=== PATIENT | female | born 1945 | race African-American/Black ===

== ENCOUNTER 2021-08-20 10:54 | Inpatient (IN) ==
[2021-08-20] MEDS ORDERED: cefTRIAXone 1,000 MG in SODIUM CHLORIDE 0.9% 100 ML IV STA (11:31)
[2021-08-20] MEDS ORDERED: AZITHROMYCIN INJ 500 MG in SODIUM CHLORIDE 0.9% 250 ML IV STA (11:31)
[2021-08-20 12:39] LABS: Basophils % 0.1 % (0.0-0.8); Eosinophils # 0.1 10*3/uL (0.0-0.87); Eosinophils % 0.8 % (0.00-10.9); Hemoglobin 12.3 GM/DL (12.0-16.0); Immature Granulocytes % 0.7 %; Immature Granulocytes Absolute 0.05 #; Lymphocytes # 1.4 10*3/uL (1.4-4.0); Lymphocytes % 19.5 % (21.3-54.2); Mean Corpuscular HGB Conc 31.5 GM/DL (32-36); Mean Corpuscular Volume 84.1 FL (87-102); Mean Platelet Volume 10.3 FL (9.6-12.0); Monocytes % 13.8 % (1.7-12.7); Neutrophils % 65.1 % (38.7-73.9); Platelet Count 283 T/CUMM (130-400); Red Blood Count 4.64 MC/CUMM (3.8-5.5); Red Cell Distribution Width 13.9 % (9.3-17.3); White Blood Count 7.2 T/CUMM (4-12)
[2021-08-20 13:01] LABS: Alanine Aminotransferase 40 U/L (13-56); Albumin 2.6 G/DL (3.4-5.0); Alkaline Phosphatase 73 U/L (45-117); Aspartate Amino Transferase 39 U/L (0-37); Blood Urea Nitrogen 21 MG/DL (7-18); Carbon Dioxide 22 MMOL/L (21-32); Estimated Glom Filtration Rate 55 ML/MIN; Glucose 190 MG/DL (74-106); Osmolality,Calculated 297.6 MOS/KG (273-304); Potassium 3.6 MMOL/L (3.5-5.1); Sodium 146 MMOL/L (136-145)
[2021-08-20 13:01] LABS: Anisocytosis 1+; Band Neutrophils 7 % (0-10); Eosinophils 2 % (0-10); Lymphocytes 18 % (20-55); Platelet Estimate Normal; Segmented Neutrophils 60 % (50-85); Total Cells Counted 100
[2021-08-20 13:14] LABS: Bilirubin,Urine Negative (Negative); Blood, Urine Negative (Negative); Glucose,Urine (UA) >=500 mg/dL (Negative); Ketones,Urine 20 mg/dL (Negative); Mucus,Urine Occasional /LPF (Occasional); Nitrite,Urine Negative (Negative); Protein,Urine Negative; RBC,Urine 1 /HPF (0-4); Urine Appearance CLEAR (Clear); Urine Color Yellow (Yellow); Urine Specific Gravity 1.015 (1.001-1.035); Urine Urobilinogen < 2.0 EU/DL (<2.0)
[2021-08-20] MEDS ORDERED: ONDANSETRON 4 MG/2 ML VIAL IV PRN (14:17)
[2021-08-20] MEDS ORDERED: GLUCAGON 1 MG VIAL IM PRN (14:17)
[2021-08-20] MEDS ORDERED: DEXTROSE 50% 25 GM/50 ML SYRINGE IV PRN (14:39)
[2021-08-20] MEDS: INSULIN LISPRO 100 UNIT/ML SUBCUT SCH ×2 (18:28→21:53)
[2021-08-20] MEDS: SODIUM CHLORIDE 0.45% 1,000 ML IV SCH (18:33)
[2021-08-20] MEDS: DEXAMETHASONE 4 MG/1 ML VIAL IV SCH (18:34)
[2021-08-21 05:17] LABS: Basophils % 0.2 % (0.0-0.8); Hematocrit 34.5 VOL% (35.7-47.0); Immature Granulocytes % 0.9 %; Immature Granulocytes Absolute 0.05 #; Lymphocytes # 1.1 10*3/uL (1.4-4.0); Lymphocytes % 18.5 % (21.3-54.2); Mean Corpuscular HGB Conc 31.9 GM/DL (32-36); Mean Corpuscular Volume 83.9 FL (87-102); Mean Platelet Volume 10.6 FL (9.6-12.0); Monocytes % 6.5 % (1.7-12.7); Neutrophils % 73.9 % (38.7-73.9); Platelet Count 238 T/CUMM (130-400); Red Blood Count 4.11 MC/CUMM (3.8-5.5); Red Cell Distribution Width 13.9 % (9.3-17.3); White Blood Count 5.8 T/CUMM (4-12)
[2021-08-21 05:44] LABS: Albumin 2.1 G/DL (3.4-5.0); Bilirubin,Total 0.6 MG/DL (0.20-1.00); Calcium 8.7 MG/DL (8.5-10.1); Osmolality,Calculated 287.5 MOS/KG (273-304); Potassium 3.7 MMOL/L (3.5-5.1); Total Protein 6.9 G/DL (6.4-8.2)
[2021-08-21 08:27] LABS: Ferritin 656.7 ng/mL (8-252)
[2021-08-21] MEDS: ASCORBIC ACID 500 MG TABLET PO SCH ×2 (09:14→21:54)
[2021-08-21] MEDS: CETIRIZINE 10 MG TABLET PO SCH (09:14)
[2021-08-21] MEDS: ZINC GLUCONATE 50 MG TABLET PO SCH (09:15)
[2021-08-21] MEDS: FAMOTIDINE 20 MG TABLET PO SCH ×2 (09:15→21:54)
[2021-08-21] MEDS: CHOLECALCIFEROL 1,000 UNIT TABLET PO SCH (09:15)
[2021-08-21] MEDS: DEXAMETHASONE 4 MG/1 ML VIAL IV SCH (09:15)
[2021-08-21] MEDS: INSULIN LISPRO 100 UNIT/ML SUBCUT SCH ×4 (09:16→21:55)
[2021-08-21] MEDS ORDERED: HEPARIN DRIP 25,000 UNITS/500 ML PREMIX IV SCH (13:00)
[2021-08-21] MEDS: ENOXAPARIN 80 MG/0.8 ML SYRINGE SUBCUT SCH ×2 (15:39→21:55)
[2021-08-21] MEDS: SODIUM CHLORIDE 0.45% 1,000 ML IV SCH (15:40)
[2021-08-22 01:40] LABS: Basophils % 0.1 % (0.0-0.8); Hematocrit 35.1 VOL% (35.7-47.0); Hemoglobin 11.5 GM/DL (12.0-16.0); Immature Granulocytes % 1.1 %; Immature Granulocytes Absolute 0.09 #; Lymphocytes % 24.1 % (21.3-54.2); Mean Corpuscular HGB Conc 32.8 GM/DL (32-36); Mean Corpuscular Volume 82.4 FL (87-102); Mean Platelet Volume 10.5 FL (9.6-12.0); Monocytes % 11.1 % (1.7-12.7); Neutrophils % 63.6 % (38.7-73.9); Platelet Count 256 T/CUMM (130-400); Red Blood Count 4.26 MC/CUMM (3.8-5.5); Red Cell Distribution Width 13.8 % (9.3-17.3); White Blood Count 8.1 T/CUMM (4-12)
[2021-08-22 01:57] LABS: Calcium 9.1 MG/DL (8.5-10.1); Osmolality,Calculated 282.8 MOS/KG (273-304); Potassium 3.9 MMOL/L (3.5-5.1)
[2021-08-22 02:26] LABS: Hypochromia 2+; Platelet Estimate Normal
[2021-08-22] MEDS: DEXAMETHASONE 4 MG/1 ML VIAL IV SCH (08:52)
[2021-08-22] MEDS: ZINC GLUCONATE 50 MG TABLET PO SCH (08:52)
[2021-08-22] MEDS: INSULIN LISPRO 100 UNIT/ML SUBCUT SCH ×2 (08:52→12:02)
[2021-08-22] MEDS: FAMOTIDINE 20 MG TABLET PO SCH (08:53)
[2021-08-22] MEDS: CHOLECALCIFEROL 1,000 UNIT TABLET PO SCH (08:53)
[2021-08-22] MEDS: ASCORBIC ACID 500 MG TABLET PO SCH (08:53)
[2021-08-22] MEDS: CETIRIZINE 10 MG TABLET PO SCH (08:53)
[2021-08-22] MEDS ORDERED: APIXABAN 5 MG TABLET PO SCH (09:00)
[2021-08-22 11:50] VITALS: BP 124/73
[2021-08-22] MEDS: SODIUM CHLORIDE 0.45% 1,000 ML IV SCH (12:08)
== END 2021-08-22 13:30 | disposition home or self-care (01) | DRG 871 ==
LOC: EDUNIT# → EDBD → N.ED 10:54 → SUATTDRO 14:17 → N.EDINP 14:17 → N.3E 17:00
PROVIDERS: ADMIT Internal Medicine Geriatric Medicine; ATTEND Internal Medicine